=== PATIENT | female | born 1985 | race Caucasian/White ===

== ENCOUNTER 2017-08-18 07:06 | Inpatient (IN) | payer BC ==
[2017-08-18] MEDS ORDERED: Ondansetron 4 MG/2 ML SDV IVPUSH PRN ×2 (09:21→10:30)
[2017-08-18] MEDS ORDERED: Nalbuphine 20 MG/1 ML Amp IVPUSH PRN (09:21)
[2017-08-18] MEDS ORDERED: Sodium Chloride 0.9% 10 ML Syringe FLUSH PRN (09:21)
[2017-08-18] MEDS ORDERED: Oxytocin/Lactated Ringers 10 UNIT/1,000 ML BAG IV SCH (09:30)
[2017-08-18] MEDS: Lactated Ringers 1,000 ML IV SCH ×4 (09:45→15:38)
[2017-08-18] MEDS: Oxytocin/Lactated Ringers 10 UNIT/1,000 ML BAG IV SCH ×2 (09:46→10:20)
[2017-08-18] MEDS ORDERED: ePHEDrine 50 MG/ML SDV IVPUSH PRN (10:30)
[2017-08-18] MEDS ORDERED: fentaNYL 100 MCG/2 ML SDV EPIDUR PRN (10:30)
[2017-08-18] MEDS ORDERED: Bupivacaine/fentaNYL/NS 100 ML Bag EPIDUR SCH (10:30)
--- NOTE | 2017-08-18 10:36 | PCM.PREANE ---
Preanesthetic Assessment - Anesthesia/Transfusion/Family Hx Anesthesia History: Prior Anesthesia Without Reaction Family History of Anesthesia Reaction: No Transfusion History: No Prior Transfusion(s) Intubation History: Unknown - Review of Systems General: No Symptoms Pulmonary: No Symptoms Cardiovascular: No Symptoms Gastrointestinal: No Symptoms Neurological: No Symptoms, Headache (History of TMJ.) Other: Reports: None, Easy Bruising - Physical Assessment NPO Status Date: 08/18/17 NPO Status Time: 10:30 Pulse: 91 O2 Sat by Pulse Oximetry: 97 Respiratory Rate: 20 Blood Pressure: 118/87 Temperature: 37.4 C Vital Signs: Last Vital Signs Temp 37.4 C 08/18/17 07:11 Pulse 91 08/18/17 07:11 Resp 20 08/18/17 07:11 BP 118/87 08/18/17 07:11 Pulse Ox 97 08/18/17 07:11 Height: 1.68 m Weight: 68.946 kg ASA Class: 2 Mental Status: Alert & Oriented x3 Airway Class: Mallampati = 2 Dentition: Reports: Normal Dentition, Caries Thyro-Mental Finger Breadths: 3 Mouth Opening Finger Breadths: 3 ROM/Head Extension: Full Lungs: Clear to Auscultation, Normal Respiratory Effort Cardiovascular: Regular Rate, Regular Rhythm, No Murmurs - Allergies Allergies/Adverse Reactions: Allergies Allergy/AdvReac Type Severity Reaction Status Date / Time strawberry Allergy Mild Rash Verified 08/18/17 09:03 - Anesthesia Plan Pre-Op Medication Ordered: None - Acknowledgements Anesthesia Type Planned: Epidural Pt an Appropriate Candidate for the Planned Anesthesia: Yes Alternatives and Risks of Anesthesia Discussed w Pt/Guardian: Yes Pt/Guardian Understands and Agrees with Anesthesia Plan: Yes PreAnesthesia Questionnaire - Past Health History Medical/Surgical History: Denies Medical/Surgical History - SUBSTANCE USE Tobacco Use Within Last Twelve Months: No Second Hand Smoke Exposure: No Recreational Drug Use History: No - CURRENT (IN HOUSE) MEDS Current Meds: Current Medications Lactated Ringer's (Ringers, Lactated) 1,000 mls @ 100 mls/hr IV ASDIRECTED [facility] Last Admin: 08/18/17 09:45 Dose: 100 mls/hr Oxytocin/Lactated Ringer's (Pitocin In Lr 10 Units/1,000 Ml) 10 unit in 1,000 mls @ 500 mls/hr IV .CONTINUOUS KEREN Oxytocin/Lactated Ringer's (Pitocin In Lr 10 Units/1,000 Ml) 10 unit in 1,000 mls @ 12 mls/hr IV TITRATE KEREN; 2 MUNITS/MIN PRN Reason: Protocol Last Admin: 08/18/17 10:20 Dose: 4 munits/min, 24 mls/hr Lidocaine HCl (Xylocaine 1%) 20 ml INJECT ONETIME ONE Stop: 08/18/17 13:01 Nalbuphine HCl (Nubain) 10 mg IVPUSH Q2H PRN PRN Reason: Pain (moderate 4-6) Ondansetron HCl (Zofran) 4 mg IVPUSH Q4H PRN PRN Reason: Nausea/Vomiting Sodium Chloride (Saline Flush) 10 ml FLUSH ASDIRECTED PRN PRN Reason: Keep Vein Open
[2017-08-18] MEDS ORDERED: Lidocaine 1% 50 ML MDV INJECT ONE (13:00)
--- NOTE | 2017-08-18 17:25 | PCM.LDHP ---
L&D History of Present Illness - General Date of Service: 08/18/17 Admit Problem/Dx: Patient Status Order with Admit Dx/Problem 08/18/17 09:21 Patient Status [ADT] Routine Admission Diagnosis/Problem Admission Diagnosis/Problem 08/18/17 17:16 41-1/7 week intrauterine , induction of labor Source of Information: Patient History Limitations: Reports: No Limitations - History of Present Illness Introduction:: Lamar is a 31-year-old 1 para 0 white female who is admitted for elective induction of labor. She is 41-1/7 weeks gestational age with an CHANCE of 08/10/2017 as based upon a certain last menstrual was started 11/03/2016 and was supported by 20 week ultrasound done on 03/26/2017. She is admitted for Pitocin/ artificial rupture membranes. The procedure, risks, benefits, alternatives of care discussed details patient. She appears to understand and wishes to proceed. RED LEADER history: 1 para 0. CHANCE 08/10/2017. Menarche age 16. Cycles every 28-30 days, using no control time conception. LMP was 11/03/2016. Positive hCG was on 12/03/2016. Patient seen for her first visit on 01/10/2017 at 9 -5/7 weeks gestational age. She was seen on a regular basis throughout the course. Her vital signs remained stable throughout the course. Her fundal height growth was appropriate and her weight increased from 117.8 pounds up to 154 pounds. She had an abnormal glucose tolerance test but on 3 hour gtt. findings were normal. She declined genetic testing. She is group B strep negative. She also has migraine headaches on occasion. She is rubella nonimmune therefore is a candidate for a measles mumps rubella vaccination after delivery. She is interested in epidural. She plans to breast-feed. She does have an umbilical hernia which causes minimal problems during the . Laboratory evaluation: Blood is O+. First labs show hemoglobin of 14.0 g or deciliter and a platelet count of 249,000. She is rubella nonimmune. RPR is nonreactive. Urine culture was negative. Hepatitis B surface antigen and HIV assays were both negative. Chlamydia and gonorrhea assays were both negative. Her second trimester labs showed hemoglobin 12.0 g or deciliter. Platelets are 219. Her diabetes screen was 135. Her three-hour glucose times test was normal with a fasting blood sugar of 82, a 1 hour glucose of 141, A2 R glucose of 132 and a three-hour glucose of 101. Her group B strep screen is negative. Allergies: Strawberries. No known drug allergies. Medications: 1. vitamins daily Past medical history: Unremarkable. Past surgical history: Unremarkable Family history: Mother and father are alive and well. No related problems noted and found. No bleeding, blood clotting or anesthesia problems noted either. Social history: Patient is . is Fadi Shah. She lives in [place]. She works at [employer]. She denies any significant loss of alcohol, drugs or tobacco. Review of systems: In general patient has no complaints. She is alert and oriented 3. Skin: Negative Cardiovascular: No chest pain or exercise intolerance Respiratory: No shortness of breath or infectious symptoms Breasts: Changes associated with pregnancypatient plans to nurse GI: Negative : Increase uterine size consistent with Musculoskeletal: minimal edema on occasion Neurological: Negative Physical exam: General the patient is a well-developed, well-nourished, pleasant female of stated age in no acute distress. Last evaluation clinic on 08/14/2017 showed blood pressure 122/80, weight of 159 with a pregravid weight of 117.8. Her height is 5 feet 6 inches. Pregravid but BMI was 18.7 Skin is warm and dry without lesions. HEENT, neck and back within normal limits. Lungs are clear with good breath sounds in all lung alvarez. Cardiovascular exam shows regular without murmurs. Breast exam not done at this time but on first visit showed some nodularities in the 2 to 3 o'clock position Abdomen is protuberant with with fundal height of 39+ centimeters, baby in vertex presentation Last cervical exam in clinic showed surgery 2+, 80% effacement, -2 station, anterior position, soft. Legs negative for edema Neurological exam grossly within normal limits. Pain Score: 8 - Related Data Allergies/Adverse Reactions: Allergies Allergy/AdvReac Type Severity Reaction Status Date / Time strawberry Allergy Mild Rash Verified 08/18/17 09:03 Past Medical History - Past Health History Medical/Surgical History: Denies Medical/Surgical History Social & Family History - Family History Family Medical History: Noncontributory - Tobacco Use Used Tobacco, but Quit: No Second Hand Smoke Exposure: No - Caffeine Use Caffeine Use: Reports: None - Recreational Drug Use Recreational Drug Use: No H&P Review of Systems - Review of Systems: Review Of Systems: See Below L&D Exam - Exam Exam: See Below - Vital Signs Vital Signs: Last Vital Signs Temp 37.4 C 08/18/17 10:38 Pulse 91 08/18/17 10:38 Resp 20 08/18/17 10:38 BP 118/87 08/18/17 10:38 Pulse Ox 97 08/18/17 10:38 Weight: 68.946 kg - Patient Data Lab Results Last 24 hrs: Laboratory Results - last 24 hr 08/18/17 Range/Units 10:26 WBC 10.65 H (3.98-10.04) K/mm3 RBC 4.21 (3.98-5.22) M/mm3 Hgb 11.4 (11.2-15.7) gm/L Hct 36.1 (34.1-44.9) % MCV 85.7 (79.4-94.8) fl MCH 27.1 (25.6-32.2) pg MCHC 31.6 L (32.2-35.5) g/dl RDW Std Deviation 42.6 (36.4-46.3) fL Plt Count 178 L (182-369) K/mm3 MPV 12.1 (9.4-12.3) fl Result Diagrams: 08/18/17 10:26 Problem List Initiated/Reviewed/Updated: Yes Orders Last 24hrs: Active Orders 24 hr Category Date Time Status Patient Status [ADT] Routine ADT 08/18/17 09:21 Active Activity as Tolerated [RC] PFP Care 08/18/17 09:21 Active Antiembolic Devices [RC] PER UNIT ROUTINE Care 08/18/17 10:04 Active Communication Order [RC] ASDIRECTED Care 08/18/17 09:21 Active Communication Order [RC] ASDIRECTED Care 08/18/17 09:21 Active Communication Order [RC] ASDIRECTED Care 08/18/17 09:21 Active Communication Order [RC] ASDIRECTED Care 08/18/17 09:21 Active Notify Provider [RC] ASDIRECTED Care 08/18/17 09:21 Active Notify Provider [RC] ASDIRECTED Care 08/18/17 10:30 Active Notify Provider [RC] PFP Care 08/18/17 09:21 Active Notify Provider [RC] PRN Care 08/18/17 09:21 Active Oxygen Therapy [RC] ASDIRECTED Care 08/18/17 10:30 Active Peripheral IV Care [RC] . DIRECTED Care 08/18/17 09:22 Active Pulse Oximetry [RC] ASDIRECTED Care 08/18/17 10:30 Active Up ad Johanny [RC] ASDIRECTED Care 08/18/17 09:25 Active Urinary Catheter Assessment [RC] Care 08/18/17 09:21 Active Vital Signs [RC] PER UNIT ROUTINE Care 08/18/17 09:21 Active Regular Diet [DIET] Diet 08/18/17 Breakfast Active Bupivacaine/fentaNYL/NS [fentaNYL/Bupivacaine/NS 2 MCG- Med 08/18/17 10:30 Active 0.125% 100 ML] 100 ml EPIDUR ASDIRECTED Lactated Ringers [Ringers, Lactated] 1,000 ml Med 08/18/17 09:30 Active IV ASDIRECTED Nalbuphine [Nubain] Med 08/18/17 09:21 Active 10 mg IVPUSH Q2H PRN Ondansetron [Zofran] Med 08/18/17 10:30 Active 4 mg IVPUSH ONETIME PRN Ondansetron [Zofran] Med 08/18/17 09:21 Active 4 mg IVPUSH Q4H PRN Oxytocin/Lactated Ringers [Pitocin in LR 10 Units/1,000 Med 08/18/17 09:30 Active ML] 10 unit in 1,000 ml IV .CONTINUOUS Oxytocin/Lactated Ringers [Pitocin in LR 10 Units/1,000 Med 08/18/17 09:30 Active ML] 10 unit in 1,000 ml IV TITRATE Sodium Chloride 0.9% [Saline Flush] Med 08/18/17 09:21 Active 10 ml FLUSH ASDIRECTED PRN ePHEDrine [ePHEDrine Sulfate] Med 08/18/17 10:30 Active 5 mg IVPUSH ASDIRECTED PRN fentaNYL [Sublimaze] Med 08/18/17 10:30 Active 100 mcg EPIDUR Q3H PRN Electronic Heart Tones Ext w TOCO [WOMSER] Oth 08/18/17 09:21 Ordered Routine Electronic Heart Tones Internal [WOMSER] Per Unit Oth 08/18/17 09:21 Ordered Routine Peripheral IV Insertion Adult [OM.PC] Routine Oth 08/18/17 09:21 Ordered SCD [Sequential Compression Device] [OM.PC] Routine Oth 08/18/17 10:04 Ordered Resuscitation Status Routine Resus Stat 08/18/17 09:21 Ordered Medication Orders Ephedrine Sulfate (Ephedrine Sulfate) 5 mg IVPUSH ASDIRECTED PRN PRN Reason: Hypotension Fentanyl (Sublimaze) 100 mcg EPIDUR Q3H PRN PRN Reason: Pain Last Admin: 08/18/17 13:11 Dose: 100 mcg Fentanyl/Bupivacaine HCl (Fentanyl/Bupivacaine/Ns 2 Mcg-0.125% 100 Ml) 100 ml EPIDUR ASDIRECTED KEREN Last Admin: 08/18/17 13:11 Dose: 100 ml Lactated Ringer's (Ringers, Lactated) 1,000 mls @ 100 mls/hr IV ASDIRECTED KEREN Last Admin: 08/18/17 15:38 Dose: 100 mls/hr Infusion: 08/18/17 15:38 Dose: 100 mls/hr Admin: 08/18/17 15:37 Dose: 100 mls/hr Infusion: 08/18/17 15:37 Dose: 100 mls/hr Admin: 08/18/17 15:35 Dose: 100 mls/hr Infusion: 08/18/17 15:35 Dose: 100 mls/hr Admin: 08/18/17 09:45 Dose: 100 mls/hr Oxytocin/Lactated Ringer's (Pitocin In Lr 10 Units/1,000 Ml) 10 unit in 1,000 mls @ 500 mls/hr IV .CONTINUOUS KEREN Oxytocin/Lactated Ringer's (Pitocin In Lr 10 Units/1,000 Ml) 10 unit in 1,000 mls @ 12 mls/hr IV TITRATE KEREN; 2 MUNITS/MIN PRN Reason: Protocol Last Admin: 08/18/17 10:20 Dose: 4 munits/min, 24 mls/hr Titration: 08/18/17 10:20 Dose: 2 munits/min, 12 mls/hr Admin: 08/18/17 09:46 Dose: 2 munits/min, 12 mls/hr Nalbuphine HCl (Nubain) 10 mg IVPUSH Q2H PRN PRN Reason: Pain (moderate 4-6) Ondansetron HCl (Zofran) 4 mg IVPUSH Q4H PRN PRN Reason: Nausea/Vomiting Ondansetron HCl (Zofran) 4 mg IVPUSH ONETIME PRN PRN Reason: Nausea/Vomiting Sodium Chloride (Saline Flush) 10 ml FLUSH ASDIRECTED PRN PRN Reason: Keep Vein Open Assessment/Plan Comment:: Assessment: 1. 41-17 week intrauterine , admitted for a scheduled induction of labor 2. Rubella nonimmunepatient is a candidate for an MMR postdelivery 3. Patient plans to breast-feed 4. Patient is okay with epidural 5. Group B strep screen is negative. Plan: 1. Pitocin/artificial rupture membranes induction. Procedure, risks, benefits, alternatives of care discussed with patient. She appears to understand and would like to proceed 2. Epidural when necessary 3. Support breast-feeding 4. MMR postdelivery
--- NOTE | 2017-08-18 18:38 | PCM.SN ---
- Free Text/Narrative Note: Lamar is a 31-year-old 1 now para 1001 white female who was admitted in the a.m. of 08/18/2017 for elective induction of labor at 41-1/7 weeks gestational age. Her CHANCE was 08/10/2017 by certain last menstrual period, supported by ultrasound done at 20 weeks. She is admitted and started on Pitocin. Once the head was well against the cervix artificial rupture membranes was undertaken resulting in clear amniotic fluid. She made slow progress to approximate 4 Ryan and made rapid progress to complete. At approximately 1645 hrs. patient became complete and began pushing. At 1810 hrs. she delivered a viable, velasquez, 3360 g (7 lbs. 7 oz.) male with Apgars of 8 and 9 in a left occiput anterior position. Nose and mouth were bulb suctioned. Baby was completely delivered and placed on mom's abdomen. Cord was clamped 2. The father of baby cut the cord at that time. Cord blood was obtained. Pitocin was started IV to facilitate an increase in uterine tone to decrease bleeding. Patient had a midline second-degree laceration which is repaired in a routine fashion using 3-0 Monocryl. Epidural was in place for analgesia. The placenta delivered in a Bah presentation, appeared complete and intact. The umbilical cord had 3 vessels. Estimated blood loss was 100 mL. Patient plans to nurse.
[2017-08-18] MEDS ORDERED: Witch Hazel Medicated Pads 100/Jar TOP PRN (18:55)
[2017-08-18] MEDS ORDERED: Lanolin 100% Cream 7 GM Tube TOP PRN (18:55)
[2017-08-18] MEDS ORDERED: Docusate Sodium 100 MG Cap PO PRN (18:55)
[2017-08-18] MEDS ORDERED: Benzocaine/Menthol 20%-0.5% Spray 56 GM Canister TOP PRN (18:55)
[2017-08-18] MEDS ORDERED: Acetaminophen 325 MG Tab PO PRN (18:55)
[2017-08-18] MEDS: Ibuprofen 600 MG Tab PO PRN (21:05)
[2017-08-18] MEDS ORDERED: Bupivacaine 0.25% 10 ML SDV ONE (22:22)
[2017-08-19] MEDS: Ibuprofen 600 MG Tab PO PRN ×2 (08:51→22:03)
[2017-08-19] MEDS ORDERED: Measles, Mumps & Rubella Vaccine 0.5 ML SDV SUBCUT ONE (15:09)
--- NOTE | 2017-08-20 08:11 | PCM.DCSUM1 ---
Discharge Summary - Hospital Course Brief History: Admitted for induction of labor. Uncomplicated delivery and course. - Discharge Data Discharge Date: 08/20/17 Discharge Disposition: Home, Self-Care 01 Condition: Good - Patient Instructions Diet: Usual Diet as Tolerated Activity: No Strenuous Activities Driving: May Drive Today Showering/Bathing: May Shower Notify Provider of: Fever, Increased Pain, Swelling and Redness, Drainage, Nausea and/or Vomiting - Discharge Plan Patient Handouts: Vaginal Delivery, Care After, Breast Pumping Tips, Easy-to- Read, Challenges and Solutions Referrals: Garland Jones MD [Primary Care Provider] - (2 weeks) - Discharge Summary/Plan Comment DC Time >30 min.: No - General Info Date of Service: 08/20/17 Functional Status: Reports: Pain Controlled - Review of Systems General: Reports: No Symptoms HEENT: Reports: No Symptoms Pulmonary: Reports: No Symptoms Cardiovascular: Reports: No Symptoms Gastrointestinal: Reports: No Symptoms Genitourinary: Reports: No Symptoms Musculoskeletal: Reports: No Symptoms Skin: Reports: No Symptoms Neurological: Reports: No Symptoms Psychiatric: Reports: No Symptoms - Patient Data Vitals - Most Recent: Last Vital Signs Temp 36.7 C 08/20/17 04:00 Pulse 54 L 08/20/17 05:21 Resp 18 08/20/17 05:21 BP 125/77 08/20/17 05:21 Pulse Ox 100 08/20/17 05:21 Weight - Most Recent: 68.946 kg I&O - Last 24 hours: Intake & Output 08/19/17 08/20/17 08/20/17 22:59 06:59 14:59 Intake Total 0 Balance 0 Med Orders - Current: Current Medications Acetaminophen (Tylenol) 650 mg PO Q4H PRN PRN Reason: mild pain or fever Benzocaine/Menthol (Dermoplast Pain Relief [place]) 0 gm TOP ASDIRECTED PRN PRN Reason: Perineal Comfort Measure Last Admin: 08/18/17 21:00 Dose: 1 canister Docusate Sodium (Colace) 100 mg PO BID PRN PRN Reason: Constipation Last Admin: 08/19/17 22:06 Dose: 100 mg Emollient Ointment (Lansinoh Hpa) 0 gm TOP ASDIRECTED PRN PRN Reason: Sore Nipples Last Admin: 08/19/17 12:16 Dose: 1 tube Ibuprofen (Motrin) 600 mg PO Q4H PRN PRN Reason: Mild pain or fever Last Admin: 08/19/17 22:03 Dose: 600 mg Witch Kenyatta (Tucks) 1 pad TOP ASDIRECTED PRN PRN Reason: Hemorrhoid pain Last Admin: 08/18/17 21:00 Dose: 1 container Discontinued Medications Ephedrine Sulfate (Ephedrine Sulfate) 5 mg IVPUSH ASDIRECTED PRN PRN Reason: Hypotension Fentanyl (Sublimaze) 100 mcg EPIDUR Q3H PRN PRN Reason: Pain Last Admin: 08/18/17 13:11 Dose: 100 mcg Fentanyl/Bupivacaine HCl (Fentanyl/Bupivacaine/Ns 2 Mcg-0.125% 100 Ml) 100 ml EPIDUR ASDIRECTED KEREN Last Admin: 08/18/17 13:11 Dose: 100 ml Lactated Ringer's (Ringers, Lactated) 1,000 mls @ 100 mls/hr IV ASDIRECTED KEREN Last Admin: 08/18/17 15:38 Dose: 100 mls/hr Oxytocin/Lactated Ringer's (Pitocin In Lr 10 Units/1,000 Ml) 10 unit in 1,000 mls @ 500 mls/hr IV .CONTINUOUS KEREN Oxytocin/Lactated Ringer's (Pitocin In Lr 10 Units/1,000 Ml) 10 unit in 1,000 mls @ 12 mls/hr IV TITRATE KEREN; 2 MUNITS/MIN PRN Reason: Protocol Last Admin: 08/18/17 10:20 Dose: 4 munits/min, 24 mls/hr Lidocaine HCl (Xylocaine 1%) 20 ml INJECT ONETIME ONE Stop: 08/18/17 13:01 Last Admin: 08/19/17 11:37 Dose: Not Given Measles/Mumps/Rubella Vaccine Live (M-M-R Ii Vaccine) 0.5 ml SUBCUT .ONCE ONE Stop: 08/19/17 15:10 Nalbuphine HCl (Nubain) 10 mg IVPUSH Q2H PRN PRN Reason: Pain (moderate 4-6) Ondansetron HCl (Zofran) 4 mg IVPUSH Q4H PRN PRN Reason: Nausea/Vomiting Ondansetron HCl (Zofran) 4 mg IVPUSH ONETIME PRN PRN Reason: Nausea/Vomiting Sodium Chloride (Saline Flush) 10 ml FLUSH ASDIRECTED PRN PRN Reason: Keep Vein Open - Exam General: Reports: Alert, Oriented HEENT: Reports: Pupils Equal, Pupils Reactive, EOMI, Mucous Membr. Moist/[place] Neck: Reports: Supple Lungs: Reports: Clear to Auscultation, Normal Respiratory Effort Cardiovascular: Reports: Regular Rate, Regular Rhythm GI/Abdominal Exam: Normal Bowel Sounds, Soft, Non-Tender, No Organomegaly, No Distention, No Abnormal Bruit, No Mass, Pelvis Stable (Female) Exam: Normal External Exam Rectal (Female) Exam: Hemorrhoids Back Exam: Reports: Normal Inspection, Full Range of Motion Extremities: Normal Inspection, Normal Range of Motion, Non-Tender, No Pedal Edema, Normal Capillary Refill Skin: Reports: Warm, Dry, Intact Wound/Incisions: Reports: Healing Well Neurological: Reports: No New Focal Deficit Psy/Mental Status: Reports: Alert, Normal Affect, Normal Mood *Q Meaningful Use (DIS) - VTE *Q VTE Criteria *Q: - Stroke *Q Stroke Criteria *Q: - AMI *Q AMI Criteria *Q:
[2017-08-20] MEDS: Ibuprofen 600 MG Tab PO PRN (13:36)
== END 2017-08-20 15:00 | disposition home or self-care (01) | DRG 560 ==
LOC: JD.OB 07:06 → OBSVTOIN 18:10
PROVIDERS: ADMIT Obstetrics & Gynecology; ATTEND Obstetrics & Gynecology
PROC: 10E0XZZ Delivery of Products of Conception, External Approach (ICD-10-PCS; principal; 2017-08-18)
PROC: 3E0P3VZ Introduction of Hormone into Female Reproductive, Percutaneous Approach (ICD-10-PCS; 2017-08-18)
PROC: 10907ZC Drainage of Amniotic Fluid, Therapeutic from Products of Conception, Via Natural or Artificial Opening (ICD-10-PCS; 2017-08-18)
PROC: 0KQM0ZZ Repair Perineum Muscle, Open Approach (ICD-10-PCS; 2017-08-18)
PROC: 00HU33Z Insertion of Infusion Device into Spinal Canal, Percutaneous Approach (ICD-10-PCS; 2017-08-18)
PROC: 3E0R3BZ Introduction of Anesthetic Agent into Spinal Canal, Percutaneous Approach (ICD-10-PCS; 2017-08-18)
PROC: 3E0234Z Introduction of Serum, Toxoid and Vaccine into Muscle, Percutaneous Approach (ICD-10-PCS; 2017-08-19)
DX: O48.0 Post-term pregnancy (principal); Z3A.41 41 weeks gestation of pregnancy; Z37.0 Single live birth; O70.1 Second degree perineal laceration during delivery; Z23 Encounter for immunization; Z91.018 Allergy to other foods
CPT/HCPCS: 36415; 51702; 59300; 59409; 85027; 90471; 90707; A9270-GY; G0010; J2590; J3010; J7120

== ENCOUNTER 2020-10-26 04:30 | Inpatient (IN) | payer OTHER ==
[~2020-10-26 04:30] MED LIST: Bupivacaine 0.25% 10 ML SDV ONE
[2020-10-26] MEDS ORDERED: Nalbuphine 10 MG/1 ML Vial IVPUSH PRN (05:30)
[2020-10-26] MEDS ORDERED: Ondansetron 4 MG/2 ML SDV IVPUSH PRN (05:30)
[2020-10-26] MEDS ORDERED: Oxytocin/Lactated Ringers 10 UNIT/1,000 ML BAG IV SCH ×2 (05:30)
[2020-10-26] MEDS ORDERED: Acetaminophen 325 MG Tab PO PRN (05:30)
[2020-10-26] MEDS ORDERED: Sodium Chloride 0.9% 10 ML Syringe FLUSH PRN (05:30)
[2020-10-26] MEDS ORDERED: Calcium Carbonate 500 MG Tab.Chew PO PRN (05:30)
[2020-10-26] MEDS: Lactated Ringers 1,000 ML IV SCH ×3 (07:14→09:11)
[2020-10-26] MEDS ORDERED: fentaNYL 100 MCG/2 ML SDV EPIDUR PRN (08:20)
[2020-10-26] MEDS ORDERED: diphenhydrAMINE 50 MG/ML SDV IVPUSH PRN (08:20)
[2020-10-26] MEDS ORDERED: Bupivacaine/fentaNYL/NS 100 ML Bag EPIDUR PRN (08:20)
[2020-10-26] MEDS ORDERED: ePHEDrine 50 MG/ML SDV IVPUSH PRN (08:20)
--- NOTE | 2020-10-26 08:57 | PCM.PREANE ---
Preanesthetic Assessment - Procedure Proposed Procedure: nick - Anesthesia/Transfusion/Family Hx Anesthesia History: Prior Anesthesia Without Reaction Family History of Anesthesia Reaction: No Transfusion History: No Prior Transfusion(s) Intubation History: Unknown - Review of Systems General: No Symptoms Pulmonary: No Symptoms Cardiovascular: No Symptoms Gastrointestinal: No Symptoms Neurological: No Symptoms Other: Reports: None - Physical Assessment Vital Signs: Last Vital Signs Temp 98.9 F 10/26/20 04:40 Pulse 57 L 10/26/20 04:40 Resp 15 10/26/20 04:40 BP 127/73 10/26/20 04:40 Pulse Ox 98 10/26/20 04:40 Height: 5 ft 6 in Weight: 73.028 kg ASA Class: 2 Mental Status: Alert & Oriented x3 Airway Class: Mallampati = 1 Dentition: Reports: Normal Dentition Thyro-Mental Finger Breadths: 3 Mouth Opening Finger Breadths: 3 ROM/Head Extension: Full Lungs: Clear to Auscultation, Normal Respiratory Effort Cardiovascular: Regular Rate, Regular Rhythm - Lab Values: Laboratory Last Values WBC 9.36 K/mm3 (3.98-10.04) 10/26/20 06:00 RBC 3.99 M/mm3 (3.98-5.22) 10/26/20 06:00 Hgb 11.6 gm/dl (11.2-15.7) 10/26/20 06:00 Hct 36.2 % (34.1-44.9) 10/26/20 06:00 MCV 90.7 fl (79.4-94.8) 10/26/20 06:00 MCH 29.1 pg (25.6-32.2) 10/26/20 06:00 MCHC 32.0 g/dl (32.2-35.5) L 10/26/20 06:00 RDW Std Deviation 46.1 fL (36.4-46.3) 10/26/20 06:00 Plt Count 144 K/mm3 (182-369) L 10/26/20 06:00 MPV 12.6 fl (9.4-12.3) H 10/26/20 06:00 Neut % (Auto) 69.1 % (34.0-71.1) 10/26/20 06:00 Lymph % (Auto) 20.6 % (19.3-51.7) 10/26/20 06:00 [place] % (Auto) 9.0 % (4.7-12.5) 10/26/20 06:00 Eos % (Auto) 0.7 (0.7-5.8) 10/26/20 06:00 Baso % (Auto) 0.1 % (0.1-1.2) 10/26/20 06:00 Neut # (Auto) 6.46 K/mm3 (1.56-6.13) H 10/26/20 06:00 Lymph # (Auto) 1.93 K/mm3 (1.18-3.74) 10/26/20 06:00 [place] # (Auto) 0.84 K/mm3 (0.24-0.36) H 10/26/20 06:00 Eos # (Auto) 0.07 K/mm3 (0.04-0.36) 10/26/20 06:00 Baso # (Auto) 0.01 K/mm3 (0.01-0.08) 10/26/20 06:00 Membrane Rupture Positive H 10/26/20 05:10 SARS-CoV-2 RNA (HEDY) Negative (NEGATIVE) 10/26/20 06:48 - Allergies Allergies/Adverse Reactions: Allergies Allergy/AdvReac Type Severity Reaction Status Date / Time strawberry Allergy Mild Rash Verified 10/26/20 04:40 - Blood Blood Available: No - Acknowledgements Anesthesia Type Planned: Epidural Pt an Appropriate Candidate for the Planned Anesthesia: Yes Alternatives and Risks of Anesthesia Discussed w Pt/Guardian: Yes Pt/Guardian Understands and Agrees with Anesthesia Plan: Yes PreAnesthesia Questionnaire - Past Health History Medical/Surgical History: Denies Medical/Surgical History Cardiovascular History: Reports: None Respiratory History: Reports: None Gastrointestinal History: Reports: None DYE MAKER History: Reports: : 2 Para: 1 Musculoskeletal History: Reports: None Oncologic (Cancer) History: Reports: None - SUBSTANCE USE Tobacco Use Status *Q: Never Tobacco User Tobacco Use Within Last Twelve Months: No Second Hand Smoke Exposure: No Days Per Week of Alcohol Use: 0 Recreational Drug Use History: No - HOME MEDS Home Medications: Home Meds No115/Iron/Folic Acid [ 19 Chewable Tablet] 1 each PO DAILY 10/26/20 [History] - CURRENT (IN HOUSE) MEDS Current Meds: Current Medications Acetaminophen (Tylenol) 650 mg PO Q4H PRN PRN Reason: Pain (Mild 1-3) and fever Calcium Carbonate/Glycine (Tums) 1,000 mg PO Q2H PRN PRN Reason: Indigestion Diphenhydramine HCl (Benadryl) 25 mg IVPUSH Q6H PRN PRN Reason: pruritis Stop: 10/27/20 23:00 Ephedrine Sulfate (Ephedrine Sulfate) 5 mg IVPUSH ASDIRECTED PRN PRN Reason: Hypotension Stop: 10/27/20 23:00 Fentanyl (Sublimaze) 100 mcg EPIDUR Q3H PRN PRN Reason: Pain Stop: 10/27/20 23:00 Last Admin: 10/26/20 08:29 Dose: 100 mcg Documented by: Fentanyl/Bupivacaine HCl (Fentanyl/Bupivacaine/Ns 2 Mcg-0.125% 100 Ml) 100 ml EPIDUR ASDIRECTED PRN PRN Reason: Pain Stop: 10/27/20 23:00 Last Admin: 10/26/20 08:29 Dose: 100 ml Documented by: Lactated Ringer's (Ringers, Lactated) 1,000 mls @ 100 mls/hr IV ASDIRECTED KEREN Last Admin: 10/26/20 08:25 Dose: 999 mls/hr Documented by: Oxytocin/Lactated Ringer's (Pitocin In Lr 10 Units/1,000 Ml) 10 unit in 1,000 mls @ 12 mls/hr IV TITRATE KEREN; Protocol Last Admin: 10/26/20 07:16 Dose: 2 munits/min, 12 mls/hr Documented by: Oxytocin/Lactated Ringer's (Pitocin In Lr 10 Units/1,000 Ml) 10 unit in 1,000 mls @ 500 mls/hr IV .CONTINUOUS KEREN Nalbuphine HCl (Nubain) 10 mg IVPUSH Q2H PRN PRN Reason: Pain Ondansetron HCl (Zofran) 4 mg IVPUSH Q4H PRN PRN Reason: Nausea/Vomiting Sodium Chloride (Saline Flush) 10 ml FLUSH ASDIRECTED PRN PRN Reason: Keep Vein Open
[2020-10-26] MEDS ORDERED: Benzocaine/Menthol 20%-0.5% Spray 56 GM Canister TOP PRN (11:00)
[2020-10-26] MEDS ORDERED: Witch Hazel Medicated Pads 40/Jar TOP PRN (11:00)
[2020-10-26] MEDS: Ibuprofen 600 MG Tab PO PRN ×2 (12:11→18:40)
[2020-10-26] MEDS: Docusate Sodium 100 MG Cap PO PRN (12:11)
[2020-10-27] MEDS: Ibuprofen 600 MG Tab PO PRN ×2 (04:04→10:44)
--- NOTE | 2020-10-27 07:03 | PCM48HPAN ---
Post Anesthesia Note - EVALUATION WITHIN 48HRS OF ANESTHETIC Vital Signs in Normal Range: Yes Patient Participated in Evaluation: Yes Respiratory Function Stable: Yes Airway Patent: Yes Cardiovascular Function Stable: Yes Hydration Status Stable: Yes Pain Control Satisfactory: Yes Nausea and Vomiting Control Satisfactory: Yes Mental Status Recovered: Yes Vital Signs: Last Vital Signs Temp 36.9 C 10/27/20 03:00 Pulse 70 10/27/20 03:00 Resp 16 10/27/20 03:00 BP 115/71 10/27/20 03:00 Pulse Ox 98 10/27/20 03:00
--- NOTE | 2020-10-27 08:29 | PCM.SN.2 ---
- Free Text/Narrative Note: Post Progress Note PPD #1 Subjective: Doing well overall. Ambulating without difficulty. Lochia minimal. Voiding without difficulty. Reports that she is passing flatus but has not had a bowel movement. She does not feel any significant rectal pressure like she has to have a bowel movement at this time. Tolerating regular diet without nausea or vomiting. Pain controlled with oral medications. Breast-feeding with some difficulty and is working with payroll consultant for assistance with feeding. Objective: Vitals: Vital Signs - 24 hr 10/26/20 10/26/20 10/26/20 15:00 16:23 19:39 Temperature 37.1 C 37.1 C Temperature [ 36.3 C Temporal] Pulse, 65 71 Peripheral Pulse, Peripheral [ Pulse Oximetry] Respiratory 14 14 16 Rate Blood Pressure 104/60 132/97 H Blood Pressure 104/60 [Left Upper Arm ] O2 Sat by Pulse 100 98 99 Oximetry 10/27/20 03:00 Temperature Temperature [ 36.9 C Temporal] Pulse, Peripheral Pulse, 70 Peripheral [ Pulse Oximetry] Respiratory 16 Rate Blood Pressure Blood Pressure 115/71 [Left Upper Arm ] O2 Sat by Pulse 98 Oximetry Physical Exam General: Alert and oriented, no acute distress Lungs: Clear to auscultation bilaterally Heart: Regular rate and rhythm Abdomen: Soft, minimal appropriate tenderness, non-distended, fundus midline, nontender, and at the umbilicus Extremities: No edema ASSESSMENT: 35-year-old female -0-0-2 s/p normal vaginal delivery PPD #1, complicated by third-degree laceration during delivery PLAN: Doing well Breast-feeding with some difficulty and is planning to work with the payroll consultant. Assist as needed Patient is passing flatus but has not had a bowel movement. Discussed with patient that she should continue to ensure that she has soft stools as her body is healing following a third-degree laceration during delivery. Recommend for her to use Colace and either milk of magnesia or MiraLAX as needed to continue to have soft stools. Lochia minimal. Continue to monitor for appropriate lochia. Continue routine care Anticipate discharge home today if she continues to progress well and is doing well with breast-feeding if she is not doing well she may stay until PPD #2 Espinoza Zuniga MD 8:50 AM 10/27/2020
[2020-10-27] MEDS: Docusate Sodium 100 MG Cap PO PRN (10:44)
--- NOTE | 2020-10-27 14:56 | PCM.DCSUM1 ---
Discharge Summary - Hospital Course Free Text/Narrative:: Lamar Shah is a 35-year-old -0-0-1 at 39 weeks 5 days who had spontaneous rupture membranes with contractions at home. On evaluation she had positive AmniSure with regular contractions. She was admitted for labor with the positive AmniSure test. Diagnosis: Stroke: No - Discharge Data Discharge Date: 10/27/20 Discharge Disposition: Home, Self-Care 01 Condition: Good - Referral to Home Health Primary Care Physician: Garland Jones MD - Discharge Diagnosis/Problem(s) (1) 40 weeks gestation of SNOMED Code(s): 58667387 ICD Code: Z3A.40 - 40 WEEKS GESTATION OF Status: Acute Current Visit: Yes (2) Vaginal delivery SNOMED Code(s): 720774962 ICD Code: O80 - ENCOUNTER FOR FULL-TERM UNCOMPLICATED DELIVERY Status: Acute Current Visit: Yes (3) Third degree laceration of perineum during delivery, SNOMED Code(s): 369334134 ICD Code: O70.20 - THIRD DEGREE PERINEAL LACERATION DURING DELIVERY, UNSP Status: Acute Current Visit: Yes - Patient Summary/Data Complications: None Consults: None Hospital Course: Lamar Shah was admitted for active labor with spontaneous rupture membranes. On admission her cervix was dilated to 4 cm. She was GBS negative.she had spontaneous rupture membranes with clear fluid. She was given an epidural for anesthesia. She was given pitocin for augmentation. She progressed to complete and began pushing. On 10/26/2020 she had a normal vaginal delivery of a live male at 10:01. Apgars of 8 and 9. Weight of 3630 g (8 pounds 0 ounces). Her delivery was complicated by a third-degree laceration that was repaired without difficulty. Her course was uneventful. Her pain was well controlled and she had minimal lochia. She was ambulating, tolerating a regular diet and voiding normally. She was breast-feeding with minimal difficulty. She was afebrile and her hematocrit was 36.2 on admission. She desired to be discharged home in the afternoon of PPD #1. Her blood type is O+. - Patient Instructions Activity: Apply Ice, As Tolerated Activity, Other: Nothing in the vagina for 6 weeks Driving: May Drive Today Showering/Bathing: January Shower Notify Provider of: Fever, Increased Pain, Swelling and Redness, Drainage, Nausea and/or Vomiting Other/Special Instructions: Please contact your physician's office if you have heavy vaginal bleeding enough to soak a pad in less than an hour for several hours. Monitor for any signs of an infection in the breasts with severe pain or redness of the breast. Ensure that you have soft stools with use of stool softener such as Colace. We want to the stools to be the consistency of toothpaste. If you are not getting soft stools with just Colace then I would recommend using additional medications to help with bowel movements such as milk of magnesia or MiraLAX. - Discharge Plan *PRESCRIPTION DRUG MONITORING PROGRAM REVIEWED*: Not Applicable *COPY OF PRESCRIPTION DRUG MONITORING REPORT IN PATIENT THIAGO: Not Applicable Home Medications: Home Meds No115/Iron/Folic Acid [ 19 Chewable Tablet] 1 each PO DAILY 10/26/20 [History] Acetaminophen [Tylenol] 650 mg PO Q4H PRN tablet 10/27/20 [Rx] Benzocaine/Menthol [Dermoplast [facility] [place]] 56 gm TOP ASDIRECTED PRN canister 10/27/20 [Rx] Calcium Carbonate [Tums] 1,000 mg PO Q2H PRN tab.chew 10/27/20 [Rx] Docusate Sodium [Colace] 100 mg PO BID PRN cap 10/27/20 [Rx] Ibuprofen [Motrin] 600 mg PO Q6H PRN tablet 10/27/20 [Rx] witch Edgar [Tucks] 1 pad TOP ASDIRECTED PRN pad 10/27/20 [Rx] Patient Handouts: Care of a Perineal Tear, Care After Vaginal Delivery Referrals: Garland Jones MD [Primary Care Provider] - (Follow-up in 2 to 3 weeks for routine visit or earlier as needed.) - Discharge Summary/Plan Comment DC Time >30 min.: No - Patient Data Vitals - Most Recent: Last Vital Signs Temp 36.9 C 10/27/20 09:00 Pulse 70 10/27/20 03:00 Resp 16 10/27/20 09:00 BP 136/79 10/27/20 09:00 Pulse Ox 100 10/27/20 09:00 Weight - Most Recent: 73.028 kg I&O - Last 24 hours: Intake & Output 10/26/20 10/27/20 10/27/20 22:59 06:59 14:59 Intake Total 500 180 Balance 500 180 Lab Results - Last 24 hrs: Laboratory Results - last 24 hr 10/26/20 Range/Units 06:00 RPR Non-reactive (NONREACTIVE) Med Orders - Current: Current Medications Acetaminophen (Tylenol) 650 mg PO Q4H PRN PRN Reason: Pain (Mild 1-3) and fever Benzocaine/Menthol (Dermoplast [facility] [place]) 56 gm TOP ASDIRECTED PRN PRN Reason: Perineal Comfort Measure Last Admin: 10/26/20 12:11 Dose: 1 can Documented by: Calcium Carbonate/Glycine (Tums) 1,000 mg PO Q2H PRN PRN Reason: Indigestion Diphenhydramine HCl (Benadryl) 25 mg IVPUSH Q6H PRN PRN Reason: pruritis Stop: 10/27/20 23:00 Docusate Sodium (Colace) 100 mg PO BID PRN PRN Reason: Constipation Last Admin: 10/27/20 10:44 Dose: 100 mg Documented by: Ephedrine Sulfate (Ephedrine Sulfate) 5 mg IVPUSH ASDIRECTED PRN PRN Reason: Hypotension Stop: 10/27/20 23:00 Fentanyl (Sublimaze) 100 mcg EPIDUR Q3H PRN PRN Reason: Pain Stop: 10/27/20 23:00 Last Admin: 10/26/20 08:29 Dose: 100 mcg Documented by: Fentanyl/Bupivacaine HCl (Fentanyl/Bupivacaine/Ns 2 Mcg-0.125% 100 Ml) 100 ml EPIDUR ASDIRECTED PRN PRN Reason: Pain Stop: 10/27/20 23:00 Last Admin: 10/26/20 08:29 Dose: 100 ml Documented by: Lactated Ringer's (Ringers, Lactated) 1,000 mls @ 100 mls/hr IV ASDIRECTED KEREN Last Admin: 10/26/20 09:11 Dose: 125 mls/hr Documented by: Ibuprofen (Motrin) 600 mg PO Q6H PRN PRN Reason: Pain/Fever Last Admin: 10/27/20 10:44 Dose: 600 mg Documented by: Nalbuphine HCl (Nubain) 10 mg IVPUSH Q2H PRN PRN Reason: Pain Ondansetron HCl (Zofran) 4 mg IVPUSH Q4H PRN PRN Reason: Nausea/Vomiting Sodium Chloride (Saline Flush) 10 ml FLUSH ASDIRECTED PRN PRN Reason: Keep Vein Open Withazel You (Tucks) 1 pad TOP ASDIRECTED PRN PRN Reason: Perineal Comfort Measure Last Admin: 10/26/20 12:10 Dose: 1 tub Documented by: Discontinued Medications Bupivacaine HCl (Sensorcaine-Mpf 0.25%) 10 ml .ROUTE .STK-MED ONE Stop: 10/26/20 00:01 Oxytocin/Lactated Ringer's (Pitocin In Lr 10 Units/1,000 Ml) 10 unit in 1,000 mls @ 12 mls/hr IV TITRATE KEREN; Protocol Last Titration: 10/26/20 10:02 Dose: 999 munits/min, 5,994 mls/hr Documented by: Oxytocin/Lactated Ringer's (Pitocin In Lr 10 Units/1,000 Ml) 10 unit in 1,000 mls @ 500 mls/hr IV .CONTINUOUS KEREN
== END 2020-10-27 16:00 | disposition home or self-care (01) | DRG 768 ==
LOC: JD.OBCHECK 04:30 → JD.OB 04:38 → JD.OBCHECK 05:30 → JD.OB 05:31 → OBSVTOIN 10:01 → JD.OB 10:02
PROVIDERS: ADMIT Obstetrics & Gynecology; ATTEND Obstetrics & Gynecology
PROC: 10E0XZZ Delivery of Products of Conception, External Approach (ICD-10-PCS; principal; 2020-10-26)
PROC: 0DQR0ZZ Repair Anal Sphincter, Open Approach (ICD-10-PCS; 2020-10-26)
PROC: 3E0R3BZ Introduction of Anesthetic Agent into Spinal Canal, Percutaneous Approach (ICD-10-PCS; 2020-10-26)
DX: O70.23 Third degree perineal laceration during delivery, IIIc (principal); Z37.0 Single live birth; Z3A.39 39 weeks gestation of pregnancy; Z20.822 Contact with and (suspected) exposure to COVID-19
CPT/HCPCS: 01967; 36415; 51702; 59025; 59409; 84112; 85025; 86592; A9270-GY; J2590; J3010; J3490; J7120; U0002